=== PATIENT | female | born 1970 | race Two or more races ===

== ENCOUNTER 2018-04-25 04:02 | Emergency (ER) | payer MEDICAID ==
[~2018-04-25] VITALS: Ht 170.2 cm; Wt 136.4 kg
[2018-04-25] MEDS ORDERED: ketorolac trometh inj. 60 MG/2 ML VIAL IM ONE (04:45)
[2018-04-25] MEDS ORDERED: proCHLORperazine 10mg tablet PO ONE (04:45)
[2018-04-25 04:53] VITALS: BP 178/83
== END 2018-04-25 04:59 | disposition home or self-care (01) ==
LOC: ER 04:03
DX: I10 Essential (primary) hypertension (principal); J44.9 Chronic obstructive pulmonary disease, unspecified
CPT/HCPCS: 93005; 96372; 99283; J1885; Q0164

== ENCOUNTER 2018-04-30 10:30 | Emergency (ER) | payer MEDICAID ==
[~2018-04-30] VITALS: Ht 170.2 cm; Wt 136.4 kg
[2018-04-30 10:45] VITALS: BP 153/62
[2018-04-30] MEDS ORDERED: metoclopramide 5 mg/ml inj IM ONE (12:15)
[2018-04-30] MEDS ORDERED: diphenhydrAMINE 50 mg/ml inj IM ONE (12:15)
[2018-04-30 12:51] LABS: BASOPHILS # (AUTO) 0.1 X10'3 (0-0.2); BASOPHILS % (AUTO) 0.4 % (0-1); EOSINOPHILS # (AUTO) 0.9 X10'3 (0-0.9); EOSINOPHILS % (AUTO) 7.1 % (0-6); HEMATOCRIT 38.9 % (35.0-45.0); HEMOGLOBIN 12.1 g/dl (12.0-16.0); LYMPHOCYTES # (AUTO) 3.3 X10'3 (1.1-4.8); LYMPHOCYTES % (AUTO) 27.5 % (21-51); MEAN CORPUSCULAR HEMOGLOBIN 21.9 PG (27.0-31.0); MEAN CORPUSCULAR VOLUME 70.6 FL (78-98); MEAN PLATELET VOLUME 8.3 FL (7.4-10.4); MONOCYTES # (AUTO) 0.7 X10'3 (0-0.9); MONOCYTES % (AUTO) 6.1 % (2-12); NEUTROPHILS % (AUTO) 58.9 % (42-75); PLATELET COUNT 387 X10'3 (140-440); RED BLOOD COUNT 5.52 X10'6 (4.20-5.60); RED CELL DISTRIBUTION WIDTH 18.1 % (11.5-14.5)
[2018-04-30 12:57] LABS: ALANINE AMINOTRANSFERASE 19 U/L (12-78); ALBUMIN 3.4 G/DL (3.4-5.0); ALBUMIN/GLOBULIN RATIO 0.8 (1.1-1.5); ALKALINE PHOSPHATASE 110 IU/L (46-116); ANION GAP 11 (8-16); ASPARTATE AMINO TRANSFERASE 14 U/L (10-37); BILIRUBIN,TOTAL 0.3 MG/DL (0.1-1.0); BLOOD UREA NITROGEN 11 MG/DL (7-18); BUN/CREATININE RATIO 17.5 (6.6-38.0); CALCIUM 8.9 MG/DL (8.5-10.1); CHLORIDE 102 MMOL/L (99-107); CREATININE 0.63 MG/DL (0.40-0.90); GLUCOSE 95 MG/DL (70-104); POTASSIUM 3.6 MMOL/L (3.5-5.1); SODIUM 140 MMOL/L (135-145); TOTAL CARBON DIOXIDE 27.5 MMOL/L (24-32); TOTAL PROTEIN 7.6 G/DL (6.4-8.2); eGFR > 90 ML/MIN
== END 2018-04-30 13:40 | disposition home or self-care (01) ==
LOC: ER 10:31
DX: R51 Headache (principal); I10 Essential (primary) hypertension; E66.01 Morbid (severe) obesity due to excess calories; J44.9 Chronic obstructive pulmonary disease, unspecified; Z87.891 Personal history of nicotine dependence
CPT/HCPCS: 36415; 70450; 80053; 84443; 85025; 96372; 99284; J1200; J2765

== ENCOUNTER 2018-05-02 08:49 | Emergency (ER) | payer MEDICAID ==
[~2018-05-02] VITALS: Ht 170.2 cm; Wt 136.4 kg
[2018-05-02 08:54] VITALS: BP 163/59
[2018-05-02] MEDS ORDERED: METO100T7 PO (10:44)
[2018-05-02] MEDS ORDERED: BUPR100T5 PO (10:44)
[2018-05-02] MEDS ORDERED: LISI-600 PO (10:47)
== END 2018-05-02 11:10 | disposition home or self-care (01) ==
LOC: ER 08:49
DX: F32.9 Major depressive disorder, single episode, unspecified (principal); I10 Essential (primary) hypertension; J44.9 Chronic obstructive pulmonary disease, unspecified; F41.9 Anxiety disorder, unspecified; Z76.0 Encounter for issue of repeat prescription; Z90.49 Acquired absence of other specified parts of digestive tract; Z98.890 Other specified postprocedural states; Z79.899 Other long term (current) drug therapy
CPT/HCPCS: 99283

== ENCOUNTER 2018-05-10 13:28 | Emergency (ER) | payer MEDICAID ==
[~2018-05-10] VITALS: Ht 170.2 cm; Wt 138.2 kg
[~2018-05-10 13:28] MED LIST: BUPR100T5 PO; LISI-600 PO; METO100T7 PO
[2018-05-10 14:14] VITALS: BP 180/106
[2018-05-10] MEDS ORDERED: ketorolac tromethamine 15mg/ml inj. IM ONE (16:45)
[2018-05-10] MEDS ORDERED: orphenadrine citrate 60mg/2ml inj. IM ONE (16:45)
[2018-05-10] MEDS ORDERED: METH-360 PO (16:50)
[2018-05-10] MEDS ORDERED: NAPR-56 PO (16:50)
== END 2018-05-10 17:12 | disposition home or self-care (01) ==
LOC: ER 13:28
DX: M54.5 Low back pain (principal); I10 Essential (primary) hypertension; J44.9 Chronic obstructive pulmonary disease, unspecified; Z90.49 Acquired absence of other specified parts of digestive tract; Z98.890 Other specified postprocedural states; Z79.899 Other long term (current) drug therapy
CPT/HCPCS: 96372; 99283; J1885; J2360

== ENCOUNTER 2018-06-01 14:58 | Emergency (ER) | payer MEDICAID ==
[~2018-06-01] VITALS: Ht 170.2 cm; Wt 138.6 kg
[~2018-06-01 14:58] MED LIST changes: +METH-360 PO; +NAPR-56 PO
[2018-06-01 15:00] VITALS: BP 171/85
[2018-06-01] MEDS ORDERED: INHA1INH2 (15:44)
[2018-06-01] MEDS ORDERED: ALBU18HF2 INH (15:44)
== END 2018-06-01 16:05 | disposition home or self-care (01) ==
LOC: ER 14:59
DX: J45.909 Unspecified asthma, uncomplicated (principal); I10 Essential (primary) hypertension; Z87.891 Personal history of nicotine dependence; Z98.890 Other specified postprocedural states; Z76.0 Encounter for issue of repeat prescription; Z90.49 Acquired absence of other specified parts of digestive tract; Z79.899 Other long term (current) drug therapy
CPT/HCPCS: 99283

== ENCOUNTER 2018-07-12 19:55 | Emergency (ER) | payer MEDICAID ==
[~2018-07-12] VITALS: Ht 170.2 cm; Wt 134.0 kg
[~2018-07-12 19:55] MED LIST changes: +ALBU18HF2 INH; +INHA1INH2; -METO100T7 PO; -NAPR-56 PO
[2018-07-12 20:11] VITALS: BP 188/78
[2018-07-12] MEDS ORDERED: PRED20TA PO (20:57)
[2018-07-12] MEDS ORDERED: ALBU8HFA PO (20:57)
[2018-07-12] MEDS ORDERED: DOXY100C43 PO (20:57)
[2018-07-12] MEDS ORDERED: dexamethasone 4mg tablet PO ONE (21:00)
== END 2018-07-12 21:33 | disposition home or self-care (01) ==
LOC: ER 19:56
DX: J44.1 Chronic obstructive pulmonary disease with (acute) exacerbation (principal); J20.9 Acute bronchitis, unspecified; I10 Essential (primary) hypertension; J44.9 Chronic obstructive pulmonary disease, unspecified; Z90.49 Acquired absence of other specified parts of digestive tract
CPT/HCPCS: 99283; J8540

== ENCOUNTER 2020-05-03 13:34 | Emergency (ER) | payer MEDICAID ==
[~2020-05-03] VITALS: Ht 170.2 cm; Wt 136.4 kg
[2020-05-03 13:38] VITALS: BP 117/96
[2020-05-03 14:11] LABS: CLARITY,URINE SLIGHTLY CLOUDY (Clear); COLOR,URINE YELLOW (Yellow); GLUCOSE, URINE NEGATIVE (Neg); KETONES,URINE TRACE mg/dl (Neg); LEUKOCYTE ESTERASE ,URINE SMALL (Neg); NITRITES, URINE NEGATIVE (Neg); OCCULT BLOOD,URINE NEGATIVE (Neg); PH,URINE 6.5 (4.8-8.0); PROTEIN,URINE TRACE mg/dl (Neg)
[2020-05-03 14:13] LABS: UA COLLECTION TYPE CLN CATCH MIDSTREAM
[2020-05-03 14:15] LABS: BASOPHILS # (AUTO) 0.1 X10'3 (0-0.2); BASOPHILS % (AUTO) 0.6 % (0-1); EOSINOPHILS # (AUTO) 0.5 X10'3 (0-0.9); EOSINOPHILS % (AUTO) 4.5 % (0-6); HEMATOCRIT 43.3 % (35.0-45.0); HEMOGLOBIN 13.9 g/dl (12.0-16.0); LYMPHOCYTES # (AUTO) 3.4 X10'3 (1.1-4.8); LYMPHOCYTES % (AUTO) 33.9 % (21-51); MEAN CORPUSCULAR HEMOGLOBIN 25.3 PG (27.0-31.0); MEAN CORPUSCULAR HGB CONC 32.2 g/dL (33.0-36.5); MEAN CORPUSCULAR VOLUME 78.5 FL (78-98); MEAN PLATELET VOLUME 8.6 FL (7.4-10.4); MONOCYTES # (AUTO) 0.8 X10'3 (0-0.9); MONOCYTES % (AUTO) 7.7 % (2-12); NEUTROPHILS # (AUTO) 5.4 X10'3 (1.8-7.7); NEUTROPHILS % (AUTO) 53.3 % (42-75); PLATELET COUNT 256 X10'3 (140-440); RED BLOOD COUNT 5.51 X10'6 (4.20-5.60); RED CELL DISTRIBUTION WIDTH 16.5 % (11.5-14.5); WHITE BLOOD COUNT 10.2 X10'3 (4.5-11.0)
[2020-05-03 14:21] LABS: ALANINE AMINOTRANSFERASE 22 U/L (12-78); ALBUMIN 3.3 G/DL (3.4-5.0); ALBUMIN/GLOBULIN RATIO 0.7 (1.1-1.5); ALKALINE PHOSPHATASE 103 IU/L (46-116); ANION GAP 7 (8-16); ASPARTATE AMINO TRANSFERASE 18 U/L (10-37); BILIRUBIN,TOTAL 0.3 MG/DL (0.1-1.0); BLOOD UREA NITROGEN 19 MG/DL (7-18); BUN/CREATININE RATIO 20.9 (6.6-38.0); CALCIUM 9.5 MG/DL (8.5-10.1); CHLORIDE 103 MMOL/L (99-107); CREATININE 0.91 MG/DL (0.40-0.90); GLUCOSE 112 MG/DL (70-104); LIPASE 150 U/L (73-393); POTASSIUM 3.9 MMOL/L (3.5-5.1); SODIUM 140 MMOL/L (135-145); TOTAL CARBON DIOXIDE 30.1 MMOL/L (24-32); TOTAL PROTEIN 7.9 G/DL (6.4-8.2); eGFR 66 ML/MIN
[2020-05-03 14:26] LABS: BACTERIA,URINE 4+ /HPF (Neg); MUCUS STRANDS FEW /LPF (Neg); RBC,URINE 0-2 /HPF (0-2); SQUAMOUS EPITHELIAL CELL,UR MODERATE /LPF (FEW); WBC,URINE 0-4 /HPF (0-4)
== END 2020-05-03 16:53 | disposition left against medical advice (07) ==
LOC: ER 13:34
DX: R10.84 Generalized abdominal pain (principal); Z53.21 Procedure and treatment not carried out due to patient leaving prior to being seen by health care provider
CPT/HCPCS: 36415; 80053; 81001; 83690; 85025; 87088

== ENCOUNTER 2022-07-26 04:23 | Emergency (ER) | payer MEDICAID, SELFPAY ==
[~2022-07-26] VITALS: Ht 165.1 cm; Wt 132.0 kg
[~2022-07-26 04:23] MED LIST changes: -LISI-600 PO; +LISI20TA28 PO
[2022-07-26] MEDS ORDERED: methylPREDNISolone sod succ 125mg/2ml vial IV ONE (04:30)
[2022-07-26] MEDS ORDERED: normal saline 1000ML IV soln IVB ONE (04:30)
[2022-07-26] MEDS ORDERED: albuterol 2.5 MG/3 ML nebule NEB ONE (04:30)
[2022-07-26 04:48] LABS: BASOPHILS # (AUTO) 0.1 X10'3 (0-0.2); BASOPHILS % (AUTO) 1.1 % (0-1); EOSINOPHILS # (AUTO) 0.3 X10'3 (0-0.9); EOSINOPHILS % (AUTO) 2.9 % (0-6); HEMATOCRIT 38.6 % (35.0-45.0); HEMOGLOBIN 12.2 g/dl (12.0-16.0); LYMPHOCYTES # (AUTO) 2.2 X10'3 (1.1-4.8); MEAN CORPUSCULAR HEMOGLOBIN 24.5 PG (27.0-31.0); MEAN CORPUSCULAR HGB CONC 31.6 g/dL (33.0-36.5); MEAN CORPUSCULAR VOLUME 77.5 FL (78-98); MONOCYTES # (AUTO) 0.8 X10'3 (0-0.9); MONOCYTES % (AUTO) 7.3 % (2-12); NEUTROPHILS # (AUTO) 7.1 X10'3 (1.8-7.7); NEUTROPHILS % (AUTO) 67.7 % (42-75); PLATELET COUNT 318 X10'3 (140-440); RED BLOOD COUNT 4.98 X10'6 (4.20-5.60); RED CELL DISTRIBUTION WIDTH 16.4 % (11.5-14.5); WHITE BLOOD COUNT 10.5 X10'3 (4.5-11.0)
[2022-07-26] MEDS ORDERED: HYDR25TA4 PO (04:57)
[2022-07-26] MEDS ORDERED: losartan PO (04:57)
[2022-07-26] MEDS ORDERED: METO100T14 PO (04:57)
[2022-07-26 05:03] LABS: ALANINE AMINOTRANSFERASE 16 U/L (12-78); ALBUMIN 2.9 G/DL (3.4-5.0); ALBUMIN/GLOBULIN RATIO 0.6 (1.1-1.5); ALKALINE PHOSPHATASE 97 IU/L (46-116); ANION GAP 6 (8-16); ASPARTATE AMINO TRANSFERASE 17 U/L (10-37); BILIRUBIN,TOTAL 0.3 MG/DL (0.1-1.0); BLOOD UREA NITROGEN 14 MG/DL (7-18); BUN/CREATININE RATIO 14.1 (6.6-38.0); CALCIUM 9.2 MG/DL (8.5-10.1); CHLORIDE 102 MMOL/L (99-107); CREATININE 0.99 MG/DL (0.40-0.90); GLUCOSE 128 MG/DL (70-104); SODIUM 140 MMOL/L (135-145); TOTAL CARBON DIOXIDE 31.9 MMOL/L (24-32); TOTAL PROTEIN 7.6 G/DL (6.4-8.2); eGFR 60 ML/MIN
[2022-07-26] MEDS ORDERED: potassium Cl 20 mEq SR tablet PO ONE (05:55)
[2022-07-26] MEDS ORDERED: magnesium oxide 400mg tablet PO ONE (05:55)
[2022-07-26] MEDS ORDERED: DEC4T PO (06:08)
[2022-07-26] MEDS ORDERED: DOXY-411 PO (06:08)
[2022-07-26] MEDS ORDERED: albuterol 2.5 MG/3 ML nebule CONTNEB PRN (06:10)
--- NOTE | 2022-07-26 06:33 | NUR ---
RN PAGED RT TO GIVE PT 2ND RT TX.
[2022-07-26 06:39] LABS: MAGNESIUM 1.8 MG/DL (1.5-2.4)
--- NOTE | 2022-07-26 06:54 | NUR ---
RT AT BEDSIDE.
[2022-07-26 08:26] VITALS: BP 144/83
== END 2022-07-26 08:32 | disposition home or self-care (01) ==
LOC: ER 04:24
DX: J18.9 Pneumonia, unspecified organism (principal); J45.901 Unspecified asthma with (acute) exacerbation; I10 Essential (primary) hypertension; G89.29 Other chronic pain; M54.9 Dorsalgia, unspecified; F31.9 Bipolar disorder, unspecified; F17.200 Nicotine dependence, unspecified, uncomplicated; Z79.899 Other long term (current) drug therapy; Z79.1 Long term (current) use of non-steroidal anti-inflammatories (NSAID); Z79.2 Long term (current) use of antibiotics
CPT/HCPCS: 36415; 71045; 80053; 83735; 83880; 84484; 85025; 93005; 94640; 94644; 96361; 96374; 99285; J2930; J7030; J7040; 94760